=== PATIENT | male | born 1980 | race Hispanic/Latino ===

== ENCOUNTER → 2018-03-20 07:46 | Outpatient (CLI) | payer OTHER, SELFPAY ==
--- NOTE | 2018-03-20 | DI.RAD.S_ITS ---
PROCEDURE: XR CERVICAL SPINE 2V OR 3V INDICATIONS: SHOULDER STRAIN/RIGHT KNEE PAIN/NECK PAIN TECHNIQUE: 4 view(s) of the cervical spine were acquired. COMPARISON: None. FINDINGS: Bones: No fractures or dislocations to the T1 level. The lateral masses of C1 appear intact on the odontoid view. No suspicious bony lesions. Soft tissues: No prevertebral soft tissue swelling. IMPRESSION: No trauma found, source of current symptoms is not seen. Dictated by: Paul Rico M.D. on 03/20/2018 at 10:27 Approved by: Paul Rico M.D. on 03/20/2018 at 10:28
--- NOTE | 2018-03-20 | DI.RAD.S_ITS ---
PROCEDURE: XR KNEE RT 3V INDICATIONS: SHOULDER STRAIN/RIGHT KNEE PAIN/NECK PAIN TECHNIQUE: 3 views of the knee were acquired. COMPARISON: None. FINDINGS: Bones: No fractures or dislocations. No suspicious bony lesions. Soft tissues: No joint effusion. No suspicious soft tissue calcifications. IMPRESSION: Left knee without acute radiographic abnormalities. Dictated by: Mikey Orozco M.D. on 03/20/2018 at 9:01 Approved by: Mikey Orozco M.D. on 03/20/2018 at 9:11
--- NOTE | 2018-03-20 | DI.MRI.S_ITS ---
PROCEDURE: MR SHOULDER RT WO CON INDICATIONS: SHOULDER STRAIN TECHNIQUE: Noncontrast oblique coronal T2 fast spin echo with fat saturation, oblique sagittal T1 spin echo and T2 fast spin echo with fat saturation, axial T1 spin echo and T2 fast spin echo with fat saturation through the shoulder. COMPARISON: None. FINDINGS: Image quality: Excellent. Rotator cuff: There is tendinosis and low-grade articular surface partial-thickness tear involving distal supraspinatus at its insertion on humeral head. Distal infraspinatus tendinosis is also seen. There is distal subscapularis tendinosis. No full-thickness rotator cuff tendon rupture. Sagittal images demonstrate no significant rotator cuff muscle atrophy. Bones and bursae: No bone marrow contusions or fractures. [id number] acromioclavicular joint osteoarthritic changes are seen No pathologic subacromial-subdeltoid or subcoracoid bursal fluid is present. Capsule and soft tissues: In the absence of intra-articular contrast, there is suggestion of superior anterior labral tear at 12 to 1:00 position. The glenohumeral ligaments appear intact. The long head of the biceps tendon demonstrates normal location and morphology. The rotator interval appears normal, without fibrosis. The coracohumeral ligament is normal in thickness. IMPRESSION: 1. Tendinosis and low-grade articular surface partial-thickness tear involving distal supraspinatus at its insertion on humeral head. Distal infraspinatus and subscapularis tendinosis. 2. Mild to moderate acromioclavicular joint osteoarthritis. 3. Suggestion of focal superior anterior labral tear at 12 to 1:00 position. Dictated by: Kirk Platt M.D. on 03/20/2018 at 8:59 Approved by: Kirk Platt M.D. on 03/20/2018 at 9:01
== END ==
PROVIDERS: PCP Family Medicine; Visit Provider Family Medicine
DX: S46.911A Strain of unspecified muscle, fascia and tendon at shoulder and upper arm level, right arm, initial encounter (principal); M75.111 Incomplete rotator cuff tear or rupture of right shoulder, not specified as traumatic; M19.011 Primary osteoarthritis, right shoulder; M54.2 Cervicalgia; M25.561 Pain in right knee
CPT/HCPCS: 72040; 73221; 73562

== ENCOUNTER → 2020-03-01 14:36 | Outpatient (ROUT) | payer OTHER, SELFPAY ==
[2020-03-01 14:55] LABS: COVID19 -Nasal RAPID Negative (Negative)
== END ==
PROVIDERS: PCP Family Medicine; Visit Provider Family Medicine
DX: Z20.822 Contact with and (suspected) exposure to COVID-19 (principal)
CPT/HCPCS: 87635

== ENCOUNTER → 2020-09-21 13:45 | Outpatient (ROUT) | payer OTHER, SELFPAY ==
[2020-09-21 14:04] LABS: COVID19 -Nasal RAPID Negative (Negative)
== END ==
PROVIDERS: PCP Family Medicine; Visit Provider Family Medicine
DX: Z20.822 Contact with and (suspected) exposure to COVID-19 (principal)
CPT/HCPCS: 87635

== ENCOUNTER → 2021-01-27 14:53 | Outpatient (CLI) | payer OTHER, SELFPAY ==
[2021-01-27 16:03] LABS: Add Manual Diff / Slide Review NO; Basophils Absolute Auto 0 /uL (0-100); Basophils Percent Auto 0.3 % (0-2); Eosinophils Absolute Auto 200 /uL (0-450); Eosinophils Percent Auto 2.7 % (2-4); Hematocrit 43.9 % (41-53); Hemoglobin 15.3 g/dL (13.5-17.5); Lymphocytes Absolute Auto 3000 /uL (1100-4500); Mean Corpuscular HGB Conc 34.8 % (30-36); Mean Corpuscular Hemoglobin 31.1 PG (26-34); Mean Corpuscular Volume 89.3 fL (80-100); Monocytes Absolute Auto 500 /uL (0-900); Monocytes Percent Auto 7.5 % (3-14); Neutrophils Absolute Auto 3600 /uL (1500-7000); Neutrophils Percent Auto 48.5 % (50-75); Platelet Count 277 X10^3/uL (150-400); Red Blood Cell Count 4.91 X10^6/uL (4.5-5.9); Red Cell Distribution Width 13.1 % (11.6-14.8); White Blood Cell Count 7.3 X10^3/uL (4.5-11.0)
[2021-01-27 17:40] LABS: Alanine Aminotransferase 58 IU/L (<50); Albumin 4.4 g/dL (3.5-5.0); Albumin Globulin Ratio 1.4 (1.0-2.8); Alkaline Phosphatase 51 U/L (38-126); Aspartate Aminotransferase 49 IU/L (17-59); BUN Creatinine Ratio 24.3 (6-22); Bilirubin Total 0.8 mg/dL (0.2-1.3); Blood Urea Nitrogen 18 mg/dL (9-20); Calcium 9.6 mg/dL (8.4-10.2); Carbon Dioxide 32 mmol/L (22-32); Chloride 101 mmol/L (98-107); Cholesterol 173 mg/dL (140-199); Estimated Glomerular Filt Rate > 60.0 mL/min (>60); Globulin 3.1 g/dL (1.7-4.1); Glucose 214 mg/dL (70-100); HDL Cholesterol 47 mg/dL (40-60); HEMOLYSIS < 15 (0-50); LDL Cholesterol Calculated 89 mg/dL (<100); Sodium 138 mmol/L (137-145); Total Protein 7.5 g/dL (6.3-8.2); Triglycerides 183 mg/dL (35-150)
[2021-01-27 18:06] LABS: TSH w/ Reflex to FT4 2.14 uIU/mL (0.47-4.68)
== END ==
PROVIDERS: PCP Family Medicine; Referring Provider Family Medicine; Visit Provider Family Medicine
DX: E11.9 Type 2 diabetes mellitus without complications (principal); Z79.899 Other long term (current) drug therapy
CPT/HCPCS: 36415; 80053; 80061; 83036; 84443; 85025

== ENCOUNTER 2022-01-17 21:27 | Emergency (ER) | payer OTHER, SELFPAY ==
[2022-01-17 21:32] VITALS: BP 123/69; PULSE 85; RESP 15; TEMP 36.6; O2SAT 98; BMI 30.3
--- NOTE | 2022-01-18 00:37 | ED_ITS ---
HPI - Extremity Problem General Chief complaint: Extremity Problem,Nontraumatic Stated complaint: left ankle , something going on Time Seen by Provider: 01/18/22 00:37 Source: patient Mode of arrival: Wheelchair History of Present Illness HPI Narrative: 41-year-old gentleman type 2 diabetic for the last 10 years not on insulin no difficulties with peripheral neuropathy presents with left foot and ankle pain with drainage from a wound over the Achilles tendon. Notice slight increase in pain over the last 2-3 days today it became increasingly swollen to the point he is unable to walk on and when he took his sock off notice there was quite a bit of drainage that was now coming out of a wound over his Achilles tendon. He complains of nausea has vomited once, does denies fevers. He describes a ?brain fog?. He is having no cough, chest pain, palpitations, abdominal pain or diarrhea Related Data Home Medications Medication Instructions Recorded Confirmed aspirin 81 mg tablet,delayed 81 mg PO QDAY ##0 11/27/16 release glimepiride 4 mg tablet (Amaryl) 4 - 8 mg PO QPM ##0 11/27/16 sitagliptin phosphate 50 1 tab PO BID ##0 11/27/16 mg-metformin 1,000 mg tablet (Janumet) hyoscyamine sulfate 0.125 mg 0.125 mg PO Q4HP ##0 12/06/16 tablet (Levsin) Previous Rx's Medication Instructions Recorded ondansetron 4 mg disintegrating 4 mg sublingual Q4HP PRN ##10 11/27/16 tablet (Zofran ODT) docusate sodium 100 mg capsule 200 mg PO BIDP PRN #60 caps 12/09/16 ibuprofen 600 mg tablet 600 mg PO TIDP PRN #20 tabs 12/09/16 metoclopramide HCl 10 mg tablet 10 mg PO TIDAC #30 tabs 12/09/16 tramadol 50 mg tablet 50 mg PO Q4HP PRN #10 tabs 12/09/16 doxycycline hyclate 100 mg capsule 100 mg PO BID #14 caps 01/18/22 oxycodone-acetaminophen 5 mg-325 1 tab PO Q6H PRN pain #14 tabs 01/18/22 mg tablet Allergies Allergy/AdvReac Type Severity Reaction Status Date / Time No Known Drug Allergies Allergy Verified 12/07/22 21:32 Review of Systems Review of Systems Narrative: Remainder of complete review of systems is otherwise unremarkable except for that included in the HPI. Patient History Medical History (Updated 01/18/22 @ 03:08 by Maryana Powell MD) Diabetes Social History Smoking Status: Unknown if ever smoked Smoking Status: Unknown if ever smoked alcohol intake frequency: holidays/special occasions only Substance Use Type: does not use Exam Initial Vital Signs Initial Vital Signs: Vital Signs Temperature 97.9 F 01/17/22 21:32 Pulse Rate 85 01/17/22 21:32 Respiratory Rate 15 01/17/22 21:32 Blood Pressure 123/69 01/17/22 21:32 Pulse Oximetry 98 01/17/22 21:32 Oxygen Delivery Method 01/17/22 21:32 General: Healthy appearing, in moderate distress. Able to give a complete and coherent history. Well-nourished well-developed HEENT: Moist mucous membranes, normal sclera with reactive pupils, Neck: supple Respiratory: Lungs are clear to auscultation, no wheezing no rales no rhonchi. Full and symmetrical air movement Cardiac: Regular rate and rhythm no murmurs no bruits Abdomen: Soft, nontender, good bowel tones, no flank pain Skin: Warm and dry, no rashes Neurologic: Grossly neurologically intact with no obvious asymmetries or abnormalities Extremities: Left foot is swollen with erythema extending over the entire foot, ankle is tender with any type of motion, he has a draining wound with surrounding erythema over the Achilles tendon and left calf is swollen without erythema extending up the calf. He has minor left inguinal adenopathy. Psych: Cooperative, appropriate insight and affect Course Orders Ordered: ED Orders 01/18/22 00:58 CT LE LT w con Stat 01/18/22 01:21 CRP [C-Reactive Protein Quant] Stat Complete Blood Count AUTO DIFF Stat Comprehensive Metabolic Panel Stat Erythrocyte Sedimentation Rate Stat 01/18/22 02:25 Blood Culture Stat 01/18/22 03:07 Wound Culture and Gram Stain Stat Discontinued Medications Bacitracin (Bacitracin Oint 0.9 Gm Pckt) 1 applic TOP NOW ONE Stop: 01/18/22 03:06 Sodium Chloride (Normal Saline 0.9%) 1,000 mls @ 1,000 mls/hr IV BOLUS ONE Stop: 01/18/22 01:57 Last Infusion: 01/18/22 02:31 Dose: 0 mls/hr Documented By: Admin: 01/18/22 01:28 Dose: 1,000 mls/hr Documented By: EVON Ceftriaxone Sodium 2,000 mg/ (Sodium Chloride) 100 mls @ 200 mls/hr IV NOW ONE Stop: 01/18/22 01:48 Last Admin: 01/18/22 02:33 Dose: 200 mls/hr Documented By: EVON Ondansetron HCl (Ondansetron 4 Mg/2 Ml Inj) 4 mg IV NOW ONE Stop: 01/18/22 00:59 Last Admin: 01/18/22 01:28 Dose: 4 mg Documented By: EVON Oxycodone/Acetaminophen (Oxycodone/Acetaminophen 5/325 Tablet) 1 tab PO NOW ONE Stop: 01/18/22 00:59 Last Admin: 01/18/22 01:28 Dose: 1 tab Documented By: EVON Oxycodone/Acetaminophen (Oxycodone/Apap 5/325 Prepack) 1 bottle MISC SEEINSTR ONE Stop: 01/18/22 03:06 Vital Signs Vital signs: Vital Signs - 8 hr 01/17/22 21:32 Temperature 97.9 F Pulse Rate 85 Respiratory Rate 15 Blood Pressure 123/69 Pulse Oximetry 98 Oxygen Delivery Method Room Air MDM - Extremity (Nontraumatic) Lab Data Result diagrams: 01/18/22 01:21 01/18/22 01:21 Labs: Lab Results 01/18/22 01/18/22 01/18/22 Range/Units 01:21 01:21 01:21 WBC 9.7 (4.5-11.0) X10^3/uL RBC 4.64 (4.5-5.9) X10^6/uL Hgb 14.5 (13.5-17.5) g/dL Hct 41.7 (41-53) % MCV 89.9 (80-100) fL MCH 31.2 (26-34) PG MCHC 34.7 (30-36) % RDW 13.1 (11.6-14.8) % Plt Count 250 (150-400) X10^3/uL Neut % (Auto) 59.3 (50-75) % Lymph % (Auto) 29.4 (25-40) % [place] % (Auto) 8.3 (3-14) % Eos % (Auto) 2.5 (2-4) % Baso % (Auto) 0.5 (0-2) % Neut # (Auto) 5700 (9705-8948) /uL Lymph # (Auto) 2800 (0593-7258) /uL [place] # (Auto) 800 (0-900) /uL Eos # (Auto) 200 (0-450) /uL Baso # (Auto) 100 (0-100) /uL ESR 12 (0-15) MM/HR Sodium (137-145) mmol/L Potassium (3.4-5.1) mmol/L Chloride (98-107) mmol/L Carbon Dioxide (22-32) mmol/L BUN (9-20) mg/dL Creatinine (0.66-1.25) mg/dL Estimated GFR (>60) mL/min BUN/Creatinine Ratio (6-22) Glucose (70-100) mg/dL Calcium (8.4-10.2) mg/dL Total Bilirubin (0.2-1.3) mg/dL AST (17-59) IU/L ALT (<50) IU/L Alkaline Phosphatase (38-126) U/L C-Reactive Protein 1.6 H (<1.0) mg/dL Total Protein (6.3-8.2) g/dL Albumin (3.5-5.0) g/dL Globulin (1.7-4.1) g/dL Albumin/Globulin Ratio (1.0-2.8) 01/18/22 Range/Units 01:21 WBC (4.5-11.0) X10^3/uL RBC (4.5-5.9) X10^6/uL Hgb (13.5-17.5) g/dL Hct (41-53) % MCV (80-100) fL MCH (26-34) PG MCHC (30-36) % RDW (11.6-14.8) % Plt Count (150-400) X10^3/uL Neut % (Auto) (50-75) % Lymph % (Auto) (25-40) % [place] % (Auto) (3-14) % Eos % (Auto) (2-4) % Baso % (Auto) (0-2) % Neut # (Auto) (5676-5073) /uL Lymph # (Auto) (1028-8162) /uL [place] # (Auto) (0-900) /uL Eos # (Auto) (0-450) /uL Baso # (Auto) (0-100) /uL ESR (0-15) MM/HR Sodium 132 L (137-145) mmol/L Potassium 4.0 (3.4-5.1) mmol/L Chloride 98 (98-107) mmol/L Carbon Dioxide 29 (22-32) mmol/L BUN 15 (9-20) mg/dL Creatinine 0.74 (0.66-1.25) mg/dL Estimated GFR > 60 (>60) mL/min BUN/Creatinine Ratio 20.3 (6-22) Glucose 356 H (70-100) mg/dL Calcium 9.0 (8.4-10.2) mg/dL Total Bilirubin 0.7 (0.2-1.3) mg/dL AST 31 (17-59) IU/L ALT 60 H (<50) IU/L Alkaline Phosphatase 73 (38-126) U/L C-Reactive Protein (<1.0) mg/dL Total Protein 6.8 (6.3-8.2) g/dL Albumin 4.0 (3.5-5.0) g/dL Globulin 2.8 (1.7-4.1) g/dL Albumin/Globulin Ratio 1.4 (1.0-2.8) Imaging Data CT left foot and ankle: Radiologist's Impression: Soft tissue swelling at the medial aspect of the lower leg. No loculated fluid collections. No acute osseous findings. No subcutaneous gas or radiodense foreign bodies. Joint spaces appear adequate. Harsha Vines MD MDM Narrative Medical decision making narrative: 41-year-old type 2 diabetic presents with dramatic pain with draining abscess over the Achilles tendon on the left side. There is erythema and induration spreading along the foot and the calf is swollen without erythema. Having significant pain with any type of superficial touch or movement. Labs do not suggest sepsis. CRP is elevated but sed rate is not. CT scan does not suggest deeper infection or tracking and at this time I am less concerned with septic ankle joint. The skin over the wound was gently debrided. A culture was obtained. There was no additional purulence noted. Pain is better controlled. Recommended keeping the foot elevated, soaking the foot and wound as tolerated keeping the wound dressed with bacitracin and a dressing and returning should symptoms worsen at all. 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 He is safe for discharge home Discharge Plan Departure Patient Disposition: Home Clinical Impression: Abscess or cellulitis of foot Instructions: DI for Wound Infection Activity Restrictions/Additional Instructions: Thank you for coming in today The wound over your Achilles tendon is draining appropriately. There does not appear to be a dramatically deeper pocket of pus or infection and it does not appear to be communicating with the ankle joint or spreading up the Achilles tendon. You do need antibiotics, you were given a dose of IV ceftriaxone in the emergency department and I am giving you a prescription for doxycycline 100 mg twice a day for 7 days. Keeping the foot elevated and not standing on it is going to help it heal faster as well as help keep the pain better controlled. Using 400 mg of ibuprofen (2 [id number] pills) and 1 Tylenol every 6 hours can be very helpful in controlling pain. For severe pain using 400 mg of ibuprofen and 1 Percocet can be helpful. If you feel that you are getting worse you do need to return to the emergency department immediately. Prescriptions: New doxycycline hyclate 100 mg capsule 100 mg PO BID Qty: 14 0RF oxycodone-acetaminophen 5-325 mg tablet 1 tab PO Q6H PRN (Reason: pain) Qty: 14 0RF No Action aspirin 81 MG tablet,delayed release (DR/EC) 81 mg PO QDAY Qty: 0 sitagliptin phos-metformin [Janumet] 50 MG/1,000 MG tablet 1 tab PO BID Qty: 0 glimepiride [Amaryl] 4 MG tablet 4 - 8 mg PO QPM Qty: 0 ondansetron [Zofran ODT] 4 MG tablet,disintegrating 4 mg Sublingual Q4HP PRNQty: 10 0RF hyoscyamine sulfate [Levsin] 0.125 MG tablet 0.125 mg PO Q4HP Qty: 0 docusate sodium 100 MG capsule 200 mg PO BIDP PRNQty: 60 0RF ibuprofen 600 MG tablet 600 mg PO TIDP PRNQty: 20 0RF metoclopramide HCl 10 MG tablet 10 mg PO TIDAC Qty: 30 0RF tramadol 50 MG tablet 50 mg PO Q4HP PRNQty: 10 0RF Referrals: Mike Del Angel MD [Primary Care Provider] - Stand Alone Forms: Work Release Note
--- NOTE | 2022-01-18 00:58 | DI.CT.S_ITS ---
PROCEDURE: CT LE LT W CON INDICATIONS: draining abscess over achilles, ? septic joint, deeper infec TECHNIQUE: After the administration of intravenous contrast, 3 mm axial sections acquired of the left lower extremity, with coronal and sagittal reformats. COMPARISON: None. FINDINGS: Image quality: Excellent. Bones: Normal alignment. No fracture or aggressive osseous lesions. The joint spaces appear intact. Soft tissues: There is subcutaneous edema along the medial aspect of the lower leg/medial malleolus. No loculated fluid collection. No subcutaneous gas or radiodense foreign bodies. IMPRESSION: Soft tissue swelling of the medial aspect of the lower leg. No abscess or evidence of acute osteomyelitis. Comment: Final report is concordant with preliminary interpretation by [facility] Dictated by: Viet Croft M.D. on 01/18/2022 at 9:26 Approved by: Viet Croft M.D. on 01/18/2022 at 9:28
[2022-01-18] MEDS: SODIUM CHLORIDE 0.9% 1,000 ML 1000 ML IV (01:28)
[2022-01-18] MEDS: ONDANSETRON 4 MG/2 ML INJ IV (01:28)
[2022-01-18] MEDS: OXYCODONE/ACETAMINOPHEN 5/325 TABLET 1 TAB PO (01:28)
[2022-01-18 01:38] LABS: Add Manual Diff / Slide Review NO; Basophils Absolute Auto 100 /uL (0-100); Basophils Percent Auto 0.5 % (0-2); Eosinophils Absolute Auto 200 /uL (0-450); Eosinophils Percent Auto 2.5 % (2-4); Hematocrit 41.7 % (41-53); Hemoglobin 14.5 g/dL (13.5-17.5); Lymphocytes Absolute Auto 2800 /uL (1100-4500); Lymphocytes Percent Auto 29.4 % (25-40); Mean Corpuscular HGB Conc 34.7 % (30-36); Mean Corpuscular Hemoglobin 31.2 PG (26-34); Mean Corpuscular Volume 89.9 fL (80-100); Monocytes Absolute Auto 800 /uL (0-900); Monocytes Percent Auto 8.3 % (3-14); Neutrophils Absolute Auto 5700 /uL (1500-7000); Neutrophils Percent Auto 59.3 % (50-75); Platelet Count 250 X10^3/uL (150-400); Red Blood Cell Count 4.64 X10^6/uL (4.5-5.9); Red Cell Distribution Width 13.1 % (11.6-14.8); White Blood Cell Count 9.7 X10^3/uL (4.5-11.0)
[2022-01-18 01:46] LABS: Alanine Aminotransferase 60 IU/L (<50); Albumin Globulin Ratio 1.4 (1.0-2.8); Alkaline Phosphatase 73 U/L (38-126); Aspartate Aminotransferase 31 IU/L (17-59); BUN Creatinine Ratio 20.3 (6-22); Bilirubin Total 0.7 mg/dL (0.2-1.3); Blood Urea Nitrogen 15 mg/dL (9-20); Carbon Dioxide 29 mmol/L (22-32); Chloride 98 mmol/L (98-107); Estimated Glomerular Filt Rate > 60 mL/min (>60); Globulin 2.8 g/dL (1.7-4.1); Glucose 356 mg/dL (70-100); HEMOLYSIS 20 (0-50); Sodium 132 mmol/L (137-145); Total Protein 6.8 g/dL (6.3-8.2)
[2022-01-18 01:47] LABS: C-Reactive Protein Quant 1.6 mg/dL (<1.0)
[2022-01-18 02:11] LABS: Erythrocyte Sedimentation Rate 12 MM/HR (0-15)
[2022-01-18] MEDS: cefTRIAXone 2,000 MG in SODIUM CHLORIDE 0.9% 100 ML 200 MG IV (02:33)
[2022-01-18] MEDS: OXYCODONE/APAP 5/325 PREPACK 1 BOTTLE MISC (03:19)
[2022-01-18] MEDS: BACITRACIN OINT 0.9 GM PCKT 1 APPLIC TOP (03:19)
[2022-01-18 03:31] VITALS: BP 139/89; PULSE 80; RESP 16; O2SAT 100
== END 2022-01-18 03:32 | disposition home or self-care (01) ==
PROVIDERS: Emergency Provider Emergency Medicine; PCP Family Medicine
DX: L03.116 Cellulitis of left lower limb (principal)
CPT/HCPCS: 36415; 73701; 80053; 85025; 85651; 86140; 87040; 87070; 87075; 87077; 87147; 87205; 96365; 96375; 99284; J0696; J2405; Q9967

== ENCOUNTER → 2022-06-04 16:21 | Outpatient (CLI) | payer OTHER, SELFPAY ==
[2022-06-06 03:21] LABS: Labcorp Hemoglobin (Hb) A1c 7.6 % (4.8-5.6)
== END ==
PROVIDERS: PCP Family Medicine; Referring Provider Family Medicine; Visit Provider Family Medicine
DX: E11.65 Type 2 diabetes mellitus with hyperglycemia (principal)
CPT/HCPCS: 36415; 83036

== ENCOUNTER → 2022-10-10 17:09 | Outpatient (CLI) | payer OTHER, SELFPAY ==
[2022-10-10 17:46] LABS: Hemoglobin A1C% w Est Avg Glu 10.7 % (4.0-6.0)
[2022-10-10 17:57] LABS: Cholesterol 170 mg/dL (140-199); HDL Cholesterol 31 mg/dL (40-60)
[2022-10-10 18:05] LABS: Triglycerides 614 mg/dL (35-150)
[2022-10-10 20:24] LABS: Creatinine Urine Random 68.9 mg/dL
[2022-10-10 20:32] LABS: Microalbumin Urine Random < 0.6 mg/dL (0-1.6)
== END ==
PROVIDERS: PCP Family Medicine; Referring Provider Family Medicine; Visit Provider Family Medicine
DX: E11.65 Type 2 diabetes mellitus with hyperglycemia (principal)
CPT/HCPCS: 36415; 80061; 82043; 82570; 83036

== ENCOUNTER 2022-10-23 17:59 | Observation (INO) | payer OTHER, SELFPAY ==
[2022-10-23 18:38] VITALS: BP 114/73; PULSE 93; RESP 20; TEMP 37.2; O2SAT 98; BMI 30.3
--- NOTE | 2022-10-23 18:43 | DI.RAD.S_ITS ---
PROCEDURE: XR CHEST 1V INDICATIONS: suspected sepsis TECHNIQUE: One view of the chest was acquired. COMPARISON: None. FINDINGS: Surgical changes and devices: None. Lungs and pleura: Lungs are clear. No pleural effusions or pneumothorax. Mediastinum: Mediastinal contours appear normal. Heart size is normal. Bones and chest wall: No suspicious bony lesions. Overlying soft tissues appear unremarkable. IMPRESSION: No acute cardiopulmonary abnormality. Dictated by: Jose Francisco Dominguez M.D. on 10/23/2022 at 19:59 Approved by: Jose Francisco Dominguez M.D. on 10/23/2022 at 20:01
[2022-10-23 19:03] LABS: INR 1.1 (0.9-1.3); Prothrombin Time 12.3 SECONDS (10.1-12.7)
[2022-10-23 19:06] LABS: PTT Partial Thromboplastin Tim 28 SECONDS (26-36)
[2022-10-23 19:08] LABS: Lactate (Lactic Acid) 2.3 mmol/L (0.7-2.1)
[2022-10-23 19:10] LABS: Alanine Aminotransferase 37 IU/L (<50); Albumin 4.6 g/dL (3.5-5.0); Albumin Globulin Ratio 1.2 (1.0-2.8); Alkaline Phosphatase 81 U/L (38-126); Aspartate Aminotransferase 31 IU/L (17-59); BUN Creatinine Ratio 18.6 (6-22); Bilirubin Total 1.1 mg/dL (0.2-1.3); Blood Urea Nitrogen 18 mg/dL (9-20); Calcium 8.9 mg/dL (8.4-10.2); Carbon Dioxide 24 mmol/L (22-32); Chloride 93 mmol/L (98-107); Estimated Glomerular Filt Rate > 60 mL/min (>60); Globulin 3.9 g/dL (1.7-4.1); Glucose 445 mg/dL (70-100); HEMOLYSIS 24 (0-50); Lipase 123 U/L (23-300); Potassium 4.6 mmol/L (3.4-5.1); Sodium 129 mmol/L (137-145); Total Protein 8.5 g/dL (6.3-8.2)
[2022-10-23 19:16] LABS: Add Manual Diff / Slide Review NO; Basophils Absolute Auto 100 /uL (0-100); Basophils Percent Auto 0.6 % (0-2); Eosinophils Absolute Auto 100 /uL (0-450); Eosinophils Percent Auto 1.1 % (2-4); Hemoglobin 15.3 g/dL (13.5-17.5); Lymphocytes Absolute Auto 2400 /uL (1100-4500); Lymphocytes Percent Auto 20.8 % (25-40); Mean Corpuscular HGB Conc 34.8 % (30-36); Mean Corpuscular Hemoglobin 30.9 PG (26-34); Mean Corpuscular Volume 88.7 fL (80-100); Monocytes Absolute Auto 900 /uL (0-900); Monocytes Percent Auto 8.3 % (3-14); Neutrophils Absolute Auto 8000 /uL (1500-7000); Neutrophils Percent Auto 69.2 % (50-75); Platelet Count 301 X10^3/uL (150-400); Red Blood Cell Count 4.95 X10^6/uL (4.5-5.9); Red Cell Distribution Width 12.8 % (11.6-14.8); White Blood Cell Count 11.5 X10^3/uL (4.5-11.0)
[2022-10-23 19:26] LABS: Procalcitonin 0.12 ng/mL (<0.5)
[2022-10-23] MEDS: SODIUM CHLORIDE 0.9% 1,000 ML 1000 ML IV (19:35)
--- NOTE | 2022-10-23 19:49 | ED_ITS ---
HPI - Wound/Laceration General Chief Complaint: Wound/Laceration Stated Complaint: infection L Leg T-3 Time Seen by Provider: 10/23/22 19:47 Source: patient Mode of arrival: Wheelchair History of Present Illness HPI narrative: 42-year-old male nonsmoker with history of diabetes presents with a chief complaint of pain and swelling to his left anterior stovall after he injured it on a scaffolding at work a few days ago. He is had subjective fever and some chills and feels generally unwell. He denies dizziness or lightheadedness. Denies any chest pain or shortness of breath. He has had prior infections. He states he largely has been taking his medications but admittedly did not take his Ozempic yesterday. Related Data Home Medications Medication Instructions Recorded Confirmed aspirin 81 mg tablet,delayed 81 mg PO QDAY ##0 11/27/16 10/23/22 release glimepiride 4 mg tablet (Amaryl) 4 - 8 mg PO QPM ##0 11/27/16 10/23/22 hyoscyamine sulfate 0.125 mg 0.125 mg PO Q4HP ##0 12/06/16 10/23/22 tablet (Levsin) glimepiride 2 mg tablet mg PO 10/23/22 10/23/22 metformin 1,000 mg tablet 1,000 mg PO DAILY 10/23/22 10/23/22 semaglutide 0.25 mg or 0.5 mg (2 mg SUBCUT 10/23/22 10/23/22 mg/3 mL) subcutaneous pen injector (Ozempic) Previous Rx's Medication Instructions Recorded docusate sodium 100 mg capsule 200 mg PO BIDP PRN #60 caps 12/09/16 ibuprofen 600 mg tablet 600 mg PO TIDP PRN #20 tabs 12/09/16 metoclopramide HCl 10 mg tablet 10 mg PO TIDAC #30 tabs 12/09/16 Allergies Allergy/AdvReac Type Severity Reaction Status Date / Time morphine Allergy Mild Nausea Verified 10/23/22 18:42 Review of Systems Review of Systems Narrative: GENERAL: See HPI HEENT: Denies sinus pain, ear pain, sore throat, difficulty swallowing, dizziness. RESPIRATORY: Denies dyspnea, cough, wheezing, hemoptysis, sputum. CARDIOVASCULAR: Denies chest pain, palpitations, orthopnea, edema, GASTROINTESTINAL: Denies nausea, vomiting, abdominal pain, diarrhea, constipation, melena. : Denies dysuria, frequency, incontinence, hematuria, urinary retention. MUSCULOSKELETAL: See HPI SKIN: See HPI NEUROLOGIC: Denies weakness, headache, numbness, change in speech, confusion, seizures, incoordination. PSYCHIATRIC: No concerning psychosocial issues. 12 point review of systems is negative except for those stated above Patient History Medical History Diabetes Social History household members: spouse and children Smoking Status: Never smoker Smoking Status: Never smoker alcohol intake frequency: holidays/special occasions only Substance Use Type: does not use Exam Narrative Exam Narrative: GENERAL: [42] year old patient appears stated age. Well-developed patient, in mild distress. HEAD: Atraumatic. Normocephalic. EYES: Pupils equal round and reactive. Extraocular motions intact. No scleral icterus. No injection or drainage. ENT: Nose without bleeding, purulent drainage. Throat without erythema, tonsillar hypertrophy or exudate. Airway patent. NECK: Trachea midline. Non tender CARDIOVASCULAR: Regular rate and rhythm without murmurs, gallops, or rubs. RESPIRATORY: Clear to auscultation. Breath sounds equal bilaterally. No wheezes, rales, or rhonchi. GASTROINTESTINAL: Abdomen soft, non-tender, nondistended. EXTREMITIES: Left anterior stovall with a quarter-sized lesion and surrounding erythema and edema is quite tender to palpation, no obvious drainage, nothing to culture or draining, no lymphangitis BACK: Nontender without deformity or crepitance. No flank tenderness. NEURO: AOx3. SKIN: No rash or erythema of visible areas Initial Vital Signs Initial Vital Signs: Vital Signs Temperature 99.0 F 10/23/22 18:38 Pulse Rate 93 H 10/23/22 18:38 Respiratory Rate 20 10/23/22 18:38 Blood Pressure 114/73 10/23/22 18:38 Pulse Oximetry 98 10/23/22 18:38 Oxygen Delivery Method Room Air 10/23/22 18:38 Course Orders Ordered: ED Orders 10/23/22 19:53 XR tibia fibula LT 2V Stat Acetaminophen (Acetaminophen 325 Mg Tablet) 650 mg PO Q6H PRN PRN Reason: Fever/Mild Pain (1-3) Hydrocodone Bitart/Acetaminophen (Hydrocodone/Acet 5/325 Tablet) 1 tab PO Q4HR PRN PRN Reason: Pain, Moderate (4-6) Last Admin: 10/23/22 22:57 Dose: 1 tab Documented By: RUPA Aspirin (Aspirin Ec 81 Mg Tablet) 81 mg PO DAILY [facility] Glimepiride (Glimepiride 2 Mg Tablet) 2 mg PO DAILY@0800 [facility] Hydromorphone HCl (Hydromorphone 0.5 Mg Inj) 0.5 mg IV Q3H PRN PRN Reason: Pain, Moderate (4-6) Vancomycin HCl/Dextrose (Vancomycin) 1,500 mg in 300 mls @ 150 mls/hr IV Q12H [facility] Insulin Human Regular (Insulin Regular 100 Unit/Ml 3 Ml Vial) 0 unit SUBCUT [facility]; Protocol Last Admin: 10/23/22 22:49 Dose: 5 unit Documented By: RUPA Co-signed By: BRE Metformin HCl (Metformin Hcl 500 Mg Tablet) 1,000 mg PO 0800 [facility] Last Admin: 10/23/22 22:46 Dose: 1,000 mg Documented By: RUPA Ondansetron HCl (Ondansetron 4 Mg/2 Ml Inj) 4 mg IV NOW PRN PRN Reason: Nausea And Vomiting Ondansetron HCl (Ondansetron 4 Mg Odt) 4 mg SL NOW PRN PRN Reason: Nausea And Vomiting Ondansetron HCl (Ondansetron 4 Mg Odt) 4 mg SL Q6HR PRN PRN Reason: Nausea Sodium Chloride (Sodium Chloride 0.9% Flush) 10 ml IV BID [facility] Vancomycin HCl (Vancomycin Per Pharmacy) 1 request MISC NOW PRN PRN Reason: vanco draw Discontinued Medications Sodium Chloride (Normal Saline 0.9%) 1,000 mls @ 1,000 mls/hr IV BOLUS ONE Stop: 10/23/22 19:42 Last Infusion: 10/23/22 20:51 Dose: 0 mls/hr Documented By: Admin: 10/23/22 19:35 Dose: 1,000 mls/hr Documented By: MARY Sodium Chloride (Normal Saline 0.9%) 3,129.78 mls @ 1,043.26 mls/hr 30 ml/kg infuse over 3 hr (3129.78 ml) IV NOW ONE Stop: 10/23/22 22:47 Last Admin: 10/23/22 20:52 Dose: 1,043.26 mls/hr Documented By: IVETT Vancomycin HCl/Dextrose (Vancomycin) 2,000 mg in 400 mls @ 200 mls/hr IV NOW ONE Stop: 10/23/22 21:47 Last Admin: 10/23/22 20:50 Dose: 200 mls/hr Documented By: SB Ceftriaxone Sodium 2,000 mg/ (Sodium Chloride) 100 mls @ 200 mls/hr IV NOW ONE Stop: 10/23/22 19:49 Last Infusion: 10/23/22 20:51 Dose: 0 mls/hr Documented By: Admin: 10/23/22 20:04 Dose: 200 mls/hr Documented By: MARY Sodium Chloride (Normal Saline 0.9%) 1,000 mls @ 150 mls/hr IV CONT DIDIER Stop: 10/24/22 04:54 Insulin Human Regular (Insulin Regular 100 Unit/Ml 3 Ml Vial) 5 unit SUBCUT NOW ONE Stop: 10/23/22 19:49 Last Admin: 10/23/22 20:13 Dose: 5 unit Documented By: MARY Co-signed By: RADHA Ketorolac Tromethamine (Ketorolac 30 Mg/Ml Vial) 15 mg IV NOW ONE Stop: 10/23/22 19:54 Last Admin: 10/23/22 20:00 Dose: 15 mg Documented By: MARY Vital Signs Vital signs: Vital Signs - 8 hr 10/23/22 18:38 Temperature 99.0 F Pulse Rate 93 H Respiratory Rate 20 Blood Pressure 114/73 Pulse Oximetry 98 Oxygen Delivery Method Room Air MDM - Wound/Laceration Lab Data 10/23/22 18:30 10/23/22 18:30 Labs: Lab Results 10/23/22 10/23/22 10/23/22 Range/Units 18:30 18:30 18:30 WBC 11.5 H (4.5-11.0) X10^3/uL RBC 4.95 (4.5-5.9) X10^6/uL Hgb 15.3 (13.5-17.5) g/dL Hct 44.0 (41-53) % MCV 88.7 (80-100) fL MCH 30.9 (26-34) PG MCHC 34.8 (30-36) % RDW 12.8 (11.6-14.8) % Plt Count 301 (150-400) X10^3/uL Neut % (Auto) 69.2 (50-75) % Lymph % (Auto) 20.8 L (25-40) % [place] % (Auto) 8.3 (3-14) % Eos % (Auto) 1.1 L (2-4) % Baso % (Auto) 0.6 (0-2) % Neut # (Auto) 8000 H (7044-7713) /uL Lymph # (Auto) 2400 (5248-8848) /uL Vernon # (Auto) 900 (0-900) /uL Eos # (Auto) 100 (0-450) /uL Baso # (Auto) 100 (0-100) /uL PT 12.3 (10.1-12.7) SECONDS INR 1.1 (0.9-1.3) APTT 28 (26-36) SECONDS Sodium 129 L (137-145) mmol/L Potassium 4.6 (3.4-5.1) mmol/L Chloride 93 L (98-107) mmol/L Carbon Dioxide 24 (22-32) mmol/L BUN 18 (9-20) mg/dL Creatinine 0.97 (0.66-1.25) mg/dL Estimated GFR > 60 (>60) mL/min BUN/Creatinine Ratio 18.6 (6-22) Glucose 445 H (70-100) mg/dL Lactate (0.7-2.1) mmol/L Calcium 8.9 (8.4-10.2) mg/dL Total Bilirubin 1.1 (0.2-1.3) mg/dL AST 31 (17-59) IU/L ALT 37 (<50) IU/L Alkaline Phosphatase 81 (38-126) U/L Total Protein 8.5 H (6.3-8.2) g/dL Albumin 4.6 (3.5-5.0) g/dL Globulin 3.9 (1.7-4.1) g/dL Albumin/Globulin Ratio 1.2 (1.0-2.8) Lipase 123 (23-300) U/L Procalcitonin 0.12 (<0.5) ng/mL 09/12/23 Range/Units 18:30 WBC (4.5-11.0) X10^3/uL RBC (4.5-5.9) X10^6/uL Hgb (13.5-17.5) g/dL Hct (41-53) % MCV (80-100) fL MCH (26-34) PG MCHC (30-36) % RDW (11.6-14.8) % Plt Count (150-400) X10^3/uL Neut % (Auto) (50-75) % Lymph % (Auto) (25-40) % Vernon % (Auto) (3-14) % Eos % (Auto) (2-4) % Baso % (Auto) (0-2) % Neut # (Auto) (2797-4991) /uL Lymph # (Auto) (6772-2913) /uL Vernon # (Auto) (0-900) /uL Eos # (Auto) (0-450) /uL Baso # (Auto) (0-100) /uL PT (10.1-12.7) SECONDS INR (0.9-1.3) APTT (26-36) SECONDS Sodium (137-145) mmol/L Potassium (3.4-5.1) mmol/L Chloride (98-107) mmol/L Carbon Dioxide (22-32) mmol/L BUN (9-20) mg/dL Creatinine (0.66-1.25) mg/dL Estimated GFR (>60) mL/min BUN/Creatinine Ratio (6-22) Glucose (70-100) mg/dL Lactate 2.3 H (0.7-2.1) mmol/L Calcium (8.4-10.2) mg/dL Total Bilirubin (0.2-1.3) mg/dL AST (17-59) IU/L ALT (<50) IU/L Alkaline Phosphatase (38-126) U/L Total Protein (6.3-8.2) g/dL Albumin (3.5-5.0) g/dL Globulin (1.7-4.1) g/dL Albumin/Globulin Ratio (1.0-2.8) Lipase (23-300) U/L Procalcitonin (<0.5) ng/mL MDM Narrative Medical decision making narrative: 42-year-old male diabetic with history of prior skin infections presents with severe left lower extremity pain and meets septic criteria Prior Charts reviewed in our EMR Primary Historian: patient Consultations: Dr. Fagan happy to admit on her service Discharge Plan Departure Patient Disposition: Admitted As Inpatient Clinical Impression: Cellulitis of left anterior lower leg, Sepsis, Acute hyperglycemia Admit Date/Time: 10/23/22 20:48 Admit Provider: Barbi Fagan
--- NOTE | 2022-10-23 19:53 | DI.RAD.S_ITS ---
PROCEDURE: XR TIBIA FIBULA LT 2V INDICATIONS: pain, swelling TECHNIQUE: 2 views of the tibia and fibula were acquired. COMPARISON: None. FINDINGS: Bones: No fractures or dislocations. No discrete bony erosions or periosteal reaction. No suspicious bony lesions. Soft tissues: No suspicious soft tissue calcifications or masses. No definite soft tissue gas. IMPRESSION: 1. No radiographic evidence of osteomyelitis. Further evaluation may be obtained with MRI if clinical concern persists. Dictated by: Morris Holley M.D. on 10/23/2022 at 21:44 Approved by: Morris Holley M.D. on 10/23/2022 at 21:45
[2022-10-23] MEDS: KETOROLAC 30 MG/ML VIAL 15 MG IV (20:00)
[2022-10-23] MEDS: cefTRIAXone 2,000 MG in SODIUM CHLORIDE 0.9% 100 ML 200 MG IV (20:04)
[2022-10-23] MEDS: INSULIN REGULAR 100 UNIT/ML 3 ML VIAL SUBCUT ×2 (20:13→22:49)
[2022-10-23 20:25] VITALS: BP 134/89; PULSE 86; RESP 24; O2SAT 99
[2022-10-23] MEDS: VANCOMYCIN 2,000 MG/400 ML PIGGYBACK 200 MG IV (20:50)
[2022-10-23 20:52] LABS: Reflexed Lactate in 2 Hours Y
[2022-10-23] MEDS: SODIUM CHLORIDE 0.9% 3,129.78 ML 1043.26 ML IV (20:52)
[2022-10-23 20:55] VITALS: BP 127/80; PULSE 70; RESP 17; TEMP 36.9; O2SAT 100
[2022-10-23 21:00] VITALS: BP 125/80; PULSE 62; RESP 16; O2SAT 98
[2022-10-23 21:30] VITALS: BMI 30.3
[2022-10-23 21:31] LABS: Lactate 2HR (Lactic Acid Rflx) 1.5 mmol/L (0.7-2.1)
[2022-10-23 21:35] VITALS: BP 138/83; PULSE 71; RESP 20; TEMP 35.8; O2SAT 100
[2022-10-23] MEDS: METFORMIN HCL 500 MG TABLET 1000 MG PO (22:46)
[2022-10-23] MEDS: HYDROCODONE/ACET 5/325 TABLET 1 TAB PO (22:57)
[2022-10-23 23:43] LABS: Appearance Urine UA CLEAR; Bilirubin Urine UA NEGATIVE (NEGATIVE); Color Urine UA YELLOW; Glucose Urine UA 3+ g/dL (Negative); Ketones Urine UA NEGATIVE (NEGATIVE); Leukocyte Esterase Urine UA NEGATIVE (NEGATIVE); Nitrite Urine UA NEGATIVE (Negative); Occult Blood Urine UA NEGATIVE (Negative); Protein Urine UA NEGATIVE (Negative); Urobilinogen Urine UA 0.2 E.U./dL (0.2); pH Urine UA 5.5 (4.5-8.0)
[2022-10-23 23:55] LABS: Bacteria Urine None Seen; Culture Indicated Urine Cult Not Indicated; RBC Urine None Seen (0-5/HPF); Squamous Epithelial Cell Urine None Seen (0-5/HPF); WBC Urine None Seen (0-5/HPF)
--- NOTE | 2022-10-24 00:09 | PC.ADMIT ---
[address] [place] Admission Note: Patient admitted to AC unit from ED @ 21:30 transported by gurney, ambulated to bed. A/O x 4, able to make needs known. Patient receiving NS bolus 1L, per Dr. Fagan change to 150/hr to complete bag, then discontinue. Patient is SBA due to pain in LLE. Redness to LLE demarcated upon arrival. Patient oriented to room, shown how to use call light. Bed in low/ locked position and call light within reach. The patient,Norman Kelley,42 y/o, was given written information regarding hospital policies, unit procedures and contact persons. Patient's smoking status: Never smoker. Vital Signs - 8 hr 10/23/22 18:38 10/23/22 20:25 10/23/22 20:55 Temperature 99.0 F 98.4 F Pulse Rate 93 H 86 70 Respiratory Rate 20 24 17 Blood Pressure 114/73 134/89 127/80 Pulse Oximetry 98 99 100 Oxygen Delivery Method Room Air Room Air Room Air 10/23/22 21:00 10/23/22 20:54 Temperature Pulse Rate 62 Respiratory Rate 16 Blood Pressure 125/80 Pulse Oximetry 98 Oxygen Delivery Method Room Air Room Air
[2022-10-24 01:00] VITALS: BP 111/61; PULSE 63; TEMP 36.1; O2SAT 97
[2022-10-24 06:00] VITALS: BP 118/66; PULSE 67; RESP 16; TEMP 36.2; O2SAT 97
[2022-10-24] MEDS: HYDROCODONE/ACET 5/325 TABLET 1 TAB PO ×3 (06:06→15:05)
[2022-10-24 06:10] LABS: Add Manual Diff / Slide Review NO; Basophils Absolute Auto 0 /uL (0-100); Basophils Percent Auto 0.3 % (0-2); Eosinophils Absolute Auto 300 /uL (0-450); Eosinophils Percent Auto 3.8 % (2-4); Hemoglobin 13.4 g/dL (13.5-17.5); Lymphocytes Absolute Auto 3300 /uL (1100-4500); Mean Corpuscular HGB Conc 35.3 % (30-36); Mean Corpuscular Hemoglobin 31.3 PG (26-34); Mean Corpuscular Volume 88.8 fL (80-100); Monocytes Absolute Auto 900 /uL (0-900); Monocytes Percent Auto 9.8 % (3-14); Neutrophils Absolute Auto 4200 /uL (1500-7000); Neutrophils Percent Auto 48.1 % (50-75); Platelet Count 240 X10^3/uL (150-400); Red Blood Cell Count 4.28 X10^6/uL (4.5-5.9); Red Cell Distribution Width 12.8 % (11.6-14.8); White Blood Cell Count 8.7 X10^3/uL (4.5-11.0)
[2022-10-24 06:20] LABS: Alanine Aminotransferase 27 IU/L (<50); Albumin 3.2 g/dL (3.5-5.0); Albumin Globulin Ratio 1.1 (1.0-2.8); Alkaline Phosphatase 66 U/L (38-126); Aspartate Aminotransferase 24 IU/L (17-59); BUN Creatinine Ratio 23.6 (6-22); Bilirubin Total 0.6 mg/dL (0.2-1.3); Blood Urea Nitrogen 17 mg/dL (9-20); Calcium 7.7 mg/dL (8.4-10.2); Carbon Dioxide 23 mmol/L (22-32); Chloride 103 mmol/L (98-107); Estimated Glomerular Filt Rate > 60 mL/min (>60); Globulin 2.9 g/dL (1.7-4.1); Glucose 243 mg/dL (70-100); HEMOLYSIS < 15 (0-50); Potassium 3.5 mmol/L (3.4-5.1); Sodium 134 mmol/L (137-145); Total Protein 6.1 g/dL (6.3-8.2)
[2022-10-24] MEDS: METFORMIN HCL 500 MG TABLET 1000 MG PO (08:10)
[2022-10-24] MEDS: GLIMEPIRIDE 2 MG TABLET PO (08:10)
[2022-10-24] MEDS: ASPIRIN EC 81 MG TABLET PO (08:10)
[2022-10-24] MEDS: SODIUM CHLORIDE 0.9% FLUSH 10 ML IV (08:10)
[2022-10-24] MEDS: VANCOMYCIN 2,000 MG/400 ML PIGGYBACK 200 MG IV (08:11)
[2022-10-24] MEDS: INSULIN REGULAR 100 UNIT/ML 3 ML VIAL SUBCUT ×2 (08:11→12:23)
[2022-10-24 08:30] VITALS: BP 131/85; PULSE 56; RESP 18; TEMP 35.6; O2SAT 98
[2022-10-24] MEDS: POTASSIUM CHLORIDE 20 MEQ TAB 40 MEQ PO (09:49)
[2022-10-24] MEDS: INSULIN GLARGINE 100 UNIT/ML 3ML PEN 10 UNIT SUBCUT (10:21)
--- NOTE | 2022-10-24 11:03 | P.HP_ITS ---
History of Present Illness History of Present Illness Date Patient Seen: 10/24/22 Time Patient Seen: 09:10 Chief complaint: infection L Leg T-3 Narrative: PT with poorly controlled diabetes presented to ED with malaise and infected L stovall wound from injury at work. Bashed it into a scaffolding creating a laceration which seemed to be healing ok initially however by DoA it was very swollen weeping approximately pal-sized lesion. Also noted small ~3mm carbuncle type lesion on left lower abdomen which sprang up about same time. Found at admission to have sugars in the 400s and started on insulin ssi as well as vanc/rocephin. Feeling better this morning the demarcated area of swelling is already improving and the pain is going down. He is not trying to ambulate much on it but can bear weight he thinks. Swelling in limb is also improving. Appetite is good. Notes this morning he is having some intermittent stabbing pain behind R eye - vision feels ok except for normal hyperglycemic cloudiness. [facility] Medical History Diabetes Social History household members: spouse and children Smoking Status: Never smoker Meds Home Medications and Allergies Home Medications Medication Instructions Recorded Confirmed Type aspirin 81 mg tablet,delayed 81 mg PO QDAY ##0 11/27/16 10/23/22 History release glimepiride 4 mg tablet (Amaryl) 4 - 8 mg PO QPM ##0 11/27/16 10/23/22 History hyoscyamine sulfate 0.125 mg 0.125 mg PO Q4HP ##0 12/06/16 10/23/22 History tablet (Levsin) docusate sodium 100 mg capsule 200 mg PO BIDP PRN #60 caps 12/09/16 10/23/22 Rx ibuprofen 600 mg tablet 600 mg PO TIDP PRN #20 tabs 12/09/16 10/23/22 Rx metoclopramide HCl 10 mg tablet 10 mg PO TIDAC #30 tabs 12/09/16 10/23/22 Rx metformin 1,000 mg tablet 1,000 mg PO DAILY 10/23/22 10/23/22 History semaglutide 0.25 mg or 0.5 mg (2 mg SUBCUT 10/23/22 10/23/22 History mg/3 mL) subcutaneous pen injector (Ozempic) Allergies Allergy/AdvReac Type Severity Reaction Status Date / Time morphine Allergy Mild Nausea Verified 10/23/22 18:42 Review of Systems Review of Systems Narrative: all systems reviewed and negative except as otherwise documented in HPI Exam Vital Signs (past 8 hours): - 10/24/22 06:00 10/24/22 08:30 Temperature 97.2 F L 96.1 F L Pulse Rate 67 56 L Respiratory Rate 16 18 Blood Pressure 118/66 131/85 Pulse Oximetry 97 98 Oxygen Delivery Method Room Air Narrative Exam Narrative: sweaty laying in bed Const Other: looks tired HENMT Other: NC/AT, EOMI, PERRLA Resp Other: clear to auscultation bilaterally Cardio Other: regular rate and rhythm, S1/S2 GI Other: soft nontender active bowel sounds 3mm boil on skin of LLQ no discharge Extrem Other: L leg with stovall laceration approx 5cm with surrounding swelling and erythema, minimal discharge. pedal edema 1+ maybe, good dorsopedal pulse. Objective Labs 10/24/22 05:18 10/24/22 05:18 Labs: Laboratory Results - last 24 hr 10/23/22 10/23/22 10/23/22 18:30 18:30 18:30 WBC 11.5 H RBC 4.95 Hgb 15.3 Hct 44.0 MCV 88.7 MCH 30.9 MCHC 34.8 RDW 12.8 Plt Count 301 Neut % (Auto) 69.2 Lymph % (Auto) 20.8 L Graves % (Auto) 8.3 Eos % (Auto) 1.1 L Baso % (Auto) 0.6 Neut # (Auto) 8000 H Lymph # (Auto) 2400 Graves # (Auto) 900 Eos # (Auto) 100 Baso # (Auto) 100 PT 12.3 INR 1.1 APTT 28 Sodium 129 L Potassium 4.6 Chloride 93 L Carbon Dioxide 24 BUN 18 Creatinine 0.97 Estimated GFR > 60 BUN/Creatinine Ratio 18.6 Glucose 445 H Lactate Calcium 8.9 Total Bilirubin 1.1 AST 31 ALT 37 Alkaline Phosphatase 81 Total Protein 8.5 H Albumin 4.6 Globulin 3.9 Albumin/Globulin Ratio 1.2 Lipase 123 Procalcitonin 0.12 Urine Color Urine Appearance Urine pH Ur Specific [place] Urine Protein Urine Glucose (UA) Urine Ketones Urine Occult Blood Urine Nitrate Urine Bilirubin Urine Urobilinogen Ur Leukocyte Esterase Urine RBC Urine WBC Ur Squamous Epith Cells Urine Bacteria Ur Culture Indicated? 10/23/22 10/23/22 10/23/22 18:30 21:12 23:41 WBC RBC Hgb Hct MCV MCH MCHC RDW Plt Count Neut % (Auto) Lymph % (Auto) Graves % (Auto) Eos % (Auto) Baso % (Auto) Neut # (Auto) Lymph # (Auto) Graves # (Auto) Eos # (Auto) Baso # (Auto) PT INR APTT Sodium Potassium Chloride Carbon Dioxide BUN Creatinine Estimated GFR BUN/Creatinine Ratio Glucose Lactate 2.3 H 1.5 Calcium Total Bilirubin AST ALT Alkaline Phosphatase Total Protein Albumin Globulin Albumin/Globulin Ratio Lipase Procalcitonin Urine Color Yellow Urine Appearance Clear Urine pH 5.5 Ur Specific [place] 1.020 Urine Protein Negative Urine Glucose (UA) 3+ H Urine Ketones Negative Urine Occult Blood Negative Urine Nitrate Negative Urine Bilirubin Negative Urine Urobilinogen 0.2 Ur Leukocyte Esterase Negative Urine RBC None seen Urine WBC None seen Ur Squamous Epith Cells None seen Urine Bacteria None seen Ur Culture Indicated? Cult not indicated 10/24/22 10/24/22 05:18 05:18 WBC 8.7 RBC 4.28 L Hgb 13.4 L Hct 38.0 L MCV 88.8 MCH 31.3 MCHC 35.3 RDW 12.8 Plt Count 240 Neut % (Auto) 48.1 L D Lymph % (Auto) 38.0 Graves % (Auto) 9.8 Eos % (Auto) 3.8 Baso % (Auto) 0.3 Neut # (Auto) 4200 Lymph # (Auto) 3300 Graves # (Auto) 900 Eos # (Auto) 300 Baso # (Auto) 0 PT INR APTT Sodium 134 L Potassium 3.5 Chloride 103 Carbon Dioxide 23 BUN 17 Creatinine 0.72 Estimated GFR > 60 BUN/Creatinine Ratio 23.6 H Glucose 243 H D Lactate Calcium 7.7 L Total Bilirubin 0.6 AST 24 ALT 27 Alkaline Phosphatase 66 Total Protein 6.1 L Albumin 3.2 L Globulin 2.9 Albumin/Globulin Ratio 1.1 Lipase Procalcitonin Urine Color Urine Appearance Urine pH Ur Specific [place] Urine Protein Urine Glucose (UA) Urine Ketones Urine Occult Blood Urine Nitrate Urine Bilirubin Urine Urobilinogen Ur Leukocyte Esterase Urine RBC Urine WBC Ur Squamous Epith Cells Urine Bacteria Ur Culture Indicated? Assessment & Plan Assessment & Plan narrative: #cellulitis of LLE and abdominal skin WBCs wnl but this infection was clearly moving aggressively will plan for at least 24 hours of iv abx then possibly PO if responding #uncontrolled diabetes continue home oral meds with addition of lantus 10U qd and SSI with diabetic diet. Contributing factor for skin infection will need to get this under better control dispo: admit obs, possible d/c on oral meds with lantus plan PCP: [facility] diet: Diabetic dvt: lovenox code: full MDM: [id number] Quality VTE Deep Vein Thrombosis/Pulmonary Embolism Present on Admission: No
--- NOTE | 2022-10-24 14:03 | CM.DANOTE ---
Initial DCP Assessment Visit Pt is a 42 year-old male with cellulitis of LLE and abdominal skin lesion after hitting his stovall at work. Pt admitted for OBS, possible d/c on oral meds with lantus plan. PCP-[facility] Payor: Dov TORRES reviewed EMR and team rounds for medical status and identified needs. Met with pt at bedside, introduced self and role. Explained that Dr. Del Angel, pt will most likely be discharged later this evening. No anticipated needs, pt also declines any home support/resource needs. DCP will continue to monitor. Discharge Planning/Care Management CM Discharge Assessment Start: 10/24/22 13:57 Freq: Status: Active Protocol: Document 10/24/22 13:57 DPL (Rec: 10/24/22 14:03 DPL [id number]) Discharge Planning Assessment Assigned Soda Dialyzer MELISSA Pedersen Advance Directives? No History Provided By Patient Expected Length of Stay 1 Has Patient been admitted in last 30 No days? Prior Living Arrangements House Comment Lives independently in own home with . Household Members spouse,children Type of transporation used prior to Drives own vehicle admit Comment will transport him home. Independent with ADL's Yes Is patient alert and oriented? Yes Needs Assistance With Home Chores / Shopping Caregiver for Another No Comment N/A Comment U/K Comment None Barriers to Discharge No Discharge Plan Home Transportation Arrangement Spouse Referrals Initiated None needed Review Status In Process Please Provide Date Initial DC 10/24/22 Assessment Was Performed
[2022-10-24 14:07] VITALS: BP 118/73; PULSE 66; RESP 16; TEMP 35.7; O2SAT 98
[2022-10-24 16:00] VITALS: BP 125/80; PULSE 56; RESP 16; O2SAT 97
[2022-10-24] MEDS: cefTRIAXone 2,000 MG in SODIUM CHLORIDE 0.9% 100 ML 200 MG IV (16:27)
[2022-10-24] MEDS: INSULIN LISPRO 100 UNIT/ML 3ML VIAL SUBCUT (17:13)
--- NOTE | 2022-10-24 17:17 | P.DS_ITS ---
History of Present Illness History of Present Illness Date Patient Seen: 10/24/22 Time Patient Seen: 17:17 Chief complaint: infection L Leg T-3 Discharge Providers Provider Date of admission: 10/23/22 20:48 Discharge Date: 10/24/22 Primary care physician: Mike Del Angel MD Discharge provider: Mike Del Angel MD Summary Hospital Course Discharge Diagnosis: #cellulitis LLE and abdominal skin #diabetes 2, non insulin dependent, uncontrolled Hospital Course: Pt presented to ED with malaise and infected L stovall wound from injury at work. Bashed it into a scaffolding creating a laceration several days ago which seemed to be healing ok initially however by DoA it was very swollen weeping approximately palm-sized lesion with septic features of presentation. Also noted small ~3mm carbuncle type lesion on left lower abdomen which sprang up about same time. Found at admission to have sugars in the 400s and started on insulin ssi as well as vanc/rocephin, I then added in some long acting insulin as well; has been taking low dose ozemmpic still building up to effective dose. He felt better after 24 hours of IV abx, able to bear weight and ambulate. Swelling in limb is also improving. Appetite is good. Will plan for close follow up in clinic and aggressive control of blood sugars. Status at Discharge Cognitive/behavioral status at discharge: at baseline, oriented Functional status at discharge: independent ambulation Overall status at discharge: patient is progressing back to baseline Exam Vital Signs (past 8 hours): - 10/24/22 14:07 10/24/22 16:00 Temperature 96.3 F L Pulse Rate 66 56 L Respiratory Rate 16 16 Blood Pressure 118/73 125/80 Pulse Oximetry 98 97 Oxygen Delivery Method Room Air Narrative Exam Narrative: laying in bed alert HENMT Other: NC/AT EOMI Resp Other: moving air well clear bilaterally Cardio Other: regular rate and rhythm GI Other: soft nontender Skin Other: LLE lesion reduced below extent of initial marker periphery, L abdominal lesion about the same 4mm but not painful Objective Labs 10/24/22 05:18 10/24/22 05:18 Labs: Laboratory Results - last 24 hr 10/23/22 10/23/22 10/23/22 18:30 18:30 18:30 WBC 11.5 H RBC 4.95 Hgb 15.3 Hct 44.0 MCV 88.7 MCH 30.9 MCHC 34.8 RDW 12.8 Plt Count 301 Neut % (Auto) 69.2 Lymph % (Auto) 20.8 L [place] % (Auto) 8.3 Eos % (Auto) 1.1 L Baso % (Auto) 0.6 Neut # (Auto) 8000 H Lymph # (Auto) 2400 [place] # (Auto) 900 Eos # (Auto) 100 Baso # (Auto) 100 PT 12.3 INR 1.1 APTT 28 Sodium 129 L Potassium 4.6 Chloride 93 L Carbon Dioxide 24 BUN 18 Creatinine 0.97 Estimated GFR > 60 BUN/Creatinine Ratio 18.6 Glucose 445 H Lactate Calcium 8.9 Total Bilirubin 1.1 AST 31 ALT 37 Alkaline Phosphatase 81 Total Protein 8.5 H Albumin 4.6 Globulin 3.9 Albumin/Globulin Ratio 1.2 Lipase 123 Procalcitonin 0.12 Urine Color Urine Appearance Urine pH Ur Specific Perry Urine Protein Urine Glucose (UA) Urine Ketones Urine Occult Blood Urine Nitrate Urine Bilirubin Urine Urobilinogen Ur Leukocyte Esterase Urine RBC Urine WBC Ur Squamous Epith Cells Urine Bacteria Ur Culture Indicated? 10/23/22 10/23/22 10/23/22 18:30 21:12 23:41 WBC RBC Hgb Hct MCV MCH MCHC RDW Plt Count Neut % (Auto) Lymph % (Auto) [place] % (Auto) Eos % (Auto) Baso % (Auto) Neut # (Auto) Lymph # (Auto) [place] # (Auto) Eos # (Auto) Baso # (Auto) PT INR APTT Sodium Potassium Chloride Carbon Dioxide BUN Creatinine Estimated GFR BUN/Creatinine Ratio Glucose Lactate 2.3 H 1.5 Calcium Total Bilirubin AST ALT Alkaline Phosphatase Total Protein Albumin Globulin Albumin/Globulin Ratio Lipase Procalcitonin Urine Color Yellow Urine Appearance Clear Urine pH 5.5 Ur Specific Perry 1.020 Urine Protein Negative Urine Glucose (UA) 3+ H Urine Ketones Negative Urine Occult Blood Negative Urine Nitrate Negative Urine Bilirubin Negative Urine Urobilinogen 0.2 Ur Leukocyte Esterase Negative Urine RBC None seen Urine WBC None seen Ur Squamous Epith Cells None seen Urine Bacteria None seen Ur Culture Indicated? Cult not indicated 10/24/22 10/24/22 05:18 05:18 WBC 8.7 RBC 4.28 L Hgb 13.4 L Hct 38.0 L MCV 88.8 MCH 31.3 MCHC 35.3 RDW 12.8 Plt Count 240 Neut % (Auto) 48.1 L D Lymph % (Auto) 38.0 [place] % (Auto) 9.8 Eos % (Auto) 3.8 Baso % (Auto) 0.3 Neut # (Auto) 4200 Lymph # (Auto) 3300 [place] # (Auto) 900 Eos # (Auto) 300 Baso # (Auto) 0 PT INR APTT Sodium 134 L Potassium 3.5 Chloride 103 Carbon Dioxide 23 BUN 17 Creatinine 0.72 Estimated GFR > 60 BUN/Creatinine Ratio 23.6 H Glucose 243 H D Lactate Calcium 7.7 L Total Bilirubin 0.6 AST 24 ALT 27 Alkaline Phosphatase 66 Total Protein 6.1 L Albumin 3.2 L Globulin 2.9 Albumin/Globulin Ratio 1.1 Lipase Procalcitonin Urine Color Urine Appearance Urine pH Ur Specific Perry Urine Protein Urine Glucose (UA) Urine Ketones Urine Occult Blood Urine Nitrate Urine Bilirubin Urine Urobilinogen Ur Leukocyte Esterase Urine RBC Urine WBC Ur Squamous Epith Cells Urine Bacteria Ur Culture Indicated? COUNTS INCLUDE 234 BEDS AT THE [facility] Medical History Diabetes Social History household members: spouse and children Smoking Status: Never smoker Discharge Assessment & Plan Assessment and Plan Assessment: #cellulitis of LLE and abdominal skin Significant improvement after 24 hours of iv abx will discharge on oral keflex and f/up in clinic tomorrow and give third dose of rocephin if needed pain meds with prn vicodin, keep elevated, ice, mobilize #uncontrolled diabetes continue home oral meds with addition of lantus 10U qd will add this on discharge to get better control advised to keep BG track next few days avoid lows below 100 dispo: d/c home to f/up as outpt with PCP: Bean diet: Diabetic dvt: lovenox code: full MDM: [id number] Discharge Plan Discharge Plan Patient Disposition: Home Discharge orders & Medications Prescriptions: New hydrocodone-acetaminophen 5-325 mg Tablet 1 tab PO Q4HR PRN (Reason: Pain, Moderate (4-6)) Qty: 20 0RF insulin glargine [Lantus Solostar U-100 Insulin] 100 unit/mL (3 mL) insulin pen 10 unit SUBCUT QPM Qty: 15 0RF cephalexin 500 mg capsule 500 mg PO QID 7 Days Qty: 28 0RF Continued Ozempic 0.25 mg or 0.5 mg (2 mg/3 mL) pen injector SUBCUT Patient Comments: [NO ORIGINAL SIG] metformin 1,000 mg tablet 1,000 mg PO DAILY aspirin 81 MG tablet,delayed release (DR/EC) 81 mg PO QDAY Qty: 0 glimepiride [Amaryl] 4 MG tablet 4 - 8 mg PO QPM Qty: 0 hyoscyamine sulfate [Levsin] 0.125 MG tablet 0.125 mg PO Q4HP Qty: 0 docusate sodium 100 MG capsule 200 mg PO BIDP PRNQty: 60 0RF ibuprofen 600 MG tablet 600 mg PO TIDP PRNQty: 20 0RF metoclopramide HCl 10 MG tablet 10 mg PO TIDAC Qty: 30 0RF Follow up/Referrals: Mike Del Angel MD [Primary Care Provider] - Diet/Activity/Treatments Diet: Carb-consistent/Diabetic Visit Report/Discharge Packet Stand Alone Forms: Patient Portal/API, Stroke Signs & Symptoms Discharge Data Primary Care Provider: Mike Del Angel Attending Provider: Barbi Fagan Admit Date/Time: 10/23/22 20:48 Quality VTE Deep Vein Thrombosis/Pulmonary Embolism Present on Admission: No
--- NOTE | 2022-11-29 14:33 | PC.NURSE ---
late entry- Patient was admitted to ACU with vancomycin infusing- was completed at ~2300 per RN.
== END 2022-10-24 17:51 | disposition home or self-care (01) ==
LOC: ED 20:47 → AC 10-24 09:19
PROVIDERS: Emergency Medicine; Admitting Provider Family Medicine; Emergency Provider Emergency Medicine; PCP Family Medicine; Referring Provider Emergency Medicine; Visit Provider Family Medicine
DX: L03.116 Cellulitis of left lower limb (principal); E11.9 Type 2 diabetes mellitus without complications; Z79.84 Long term (current) use of oral hypoglycemic drugs
CPT/HCPCS: 36415; 71045; 73590; 80053; 81001; 82962; 83605; 83690; 84145; 85025; 85610; 85730; 87040; 93005; 93010; 96365; 96366; 96367; 96372; 96375; 99284; G0378; J0696; J1815; J1885

== ENCOUNTER → 2022-12-21 17:50 | Outpatient (CLI) | payer OTHER, SELFPAY | PROVIDERS: PCP Family Medicine; Visit Provider Nurse Practitioner Family | DX: J02.9 Acute pharyngitis, unspecified (principal) | CPT/HCPCS: 87070 ==

== ENCOUNTER → 2023-03-04 16:56 | Outpatient (CLI) | payer OTHER, SELFPAY ==
[2023-03-05 10:48] LABS: Hemoglobin A1C% w Est Avg Glu 6.2 % (4.0-6.0)
== END ==
PROVIDERS: PCP Family Medicine; Referring Provider Family Medicine; Visit Provider Family Medicine
DX: E11.65 Type 2 diabetes mellitus with hyperglycemia (principal)
CPT/HCPCS: 36415; 83036

== ENCOUNTER → 2023-10-10 12:39 | Outpatient (CLI) | payer OTHER, SELFPAY | PROVIDERS: PCP Family Medicine; Referring Provider Family Medicine; Visit Provider Surgery | DX: E11.621 Type 2 diabetes mellitus with foot ulcer (principal); L97.512 Non-pressure chronic ulcer of other part of right foot with fat layer exposed; L84 Corns and callosities | CPT/HCPCS: 11042; 87070; 87075; 87147; 87186; 87205; 99204; 99214 ==

== ENCOUNTER → 2023-10-11 14:34 | Outpatient (CLI) | payer OTHER, SELFPAY ==
--- NOTE | 2023-10-11 14:36 | DI.RAD.S_ITS ---
PROCEDURE: XR FOOT RT MIN 3V INDICATIONS: eval for osteo TECHNIQUE: 3 views of the foot were acquired. COMPARISON: None. FINDINGS: Bones: No fractures or dislocations. No suspicious bony lesions. Soft tissues: No tibiotalar joint effusion. Achilles tendon appears normal. IMPRESSION: The site of current clinical concern for osteomyelitis is not provided. It is very helpful to receive such clinical information, such as if there is a site of soft tissue ulceration. Currently no definite soft tissue ulceration or osteomyelitis can be seen. No gas in the soft tissues is found. Dictated by: Paul Rico M.D. on 10/11/2023 at 16:45 Approved by: Paul Rico M.D. on 10/11/2023 at 16:46
[2023-10-11 16:20] LABS: Add Manual Diff / Slide Review NO; Basophils Absolute Auto 0 /uL (0-100); Basophils Percent Auto 0.3 % (0-2); Eosinophils Absolute Auto 300 /uL (0-450); Hematocrit 43.5 % (41-53); Lymphocytes Absolute Auto 2700 /uL (1100-4500); Lymphocytes Percent Auto 39.5 % (25-40); Mean Corpuscular HGB Conc 34.5 % (30-36); Mean Corpuscular Hemoglobin 31.7 PG (26-34); Monocytes Absolute Auto 400 /uL (0-900); Monocytes Percent Auto 6.6 % (3-14); Neutrophils Absolute Auto 3300 /uL (1500-7000); Neutrophils Percent Auto 49.6 % (50-75); Platelet Count 231 X10^3/uL (150-400); Red Blood Cell Count 4.73 X10^6/uL (4.5-5.9); Red Cell Distribution Width 12.8 % (11.6-14.8); White Blood Cell Count 6.7 X10^3/uL (4.5-11.0)
[2023-10-11 17:02] LABS: Alanine Aminotransferase 33 IU/L (<50); Albumin 4.4 g/dL (3.5-5.0); Albumin Globulin Ratio 1.4 (1.0-2.8); Alkaline Phosphatase 61 U/L (38-126); Aspartate Aminotransferase 39 IU/L (17-59); BUN Creatinine Ratio 18.9 (6-22); Bilirubin Total 0.6 mg/dL (0.2-1.3); Blood Urea Nitrogen 17 mg/dL (9-20); C-Reactive Protein Quant < 0.5 mg/dL (<1.0); Calcium 8.9 mg/dL (8.4-10.2); Carbon Dioxide 24 mmol/L (22-32); Chloride 105 mmol/L (98-107); Estimated Glomerular Filt Rate > 60 mL/min (>60); Globulin 3.2 g/dL (1.7-4.1); Glucose 138 mg/dL (70-100); HEMOLYSIS 17 (0-50); Potassium 3.7 mmol/L (3.4-5.1); Sodium 139 mmol/L (137-145); Total Protein 7.6 g/dL (6.3-8.2)
[2023-10-11 19:39] LABS: Hemoglobin A1C% w Est Avg Glu 5.8 % (4.0-6.0)
[2023-10-11 21:24] LABS: Erythrocyte Sedimentation Rate 7 MM/HR (0-15)
== END ==
LOC: LAB 14:35
PROVIDERS: PCP Family Medicine; Referring Provider Surgery; Visit Provider Surgery
DX: E11.621 Type 2 diabetes mellitus with foot ulcer (principal)
CPT/HCPCS: 73630; 80053; 83036; 85025; 85651; 86140

== ENCOUNTER → 2023-10-17 14:59 | Outpatient (CLI) | payer OTHER, SELFPAY | PROVIDERS: PCP Family Medicine; Referring Provider Family Medicine; Visit Provider Surgery | DX: E11.621 Type 2 diabetes mellitus with foot ulcer (principal); L97.512 Non-pressure chronic ulcer of other part of right foot with fat layer exposed; L84 Corns and callosities | CPT/HCPCS: 11042 ==

== ENCOUNTER → 2023-10-24 14:48 | Outpatient (CLI) | payer OTHER, SELFPAY | LOC: WC 14:49 | PROVIDERS: PCP Family Medicine; Referring Provider Family Medicine; Visit Provider Surgery | DX: E11.621 Type 2 diabetes mellitus with foot ulcer (principal); L97.512 Non-pressure chronic ulcer of other part of right foot with fat layer exposed; L84 Corns and callosities | CPT/HCPCS: 11042 ==

== ENCOUNTER → 2023-10-31 15:12 | Outpatient (CLI) | payer OTHER, SELFPAY | LOC: WC 15:13 | PROVIDERS: PCP Family Medicine; Referring Provider Family Medicine; Visit Provider Surgery | DX: E11.628 Type 2 diabetes mellitus with other skin complications (principal); L84 Corns and callosities | CPT/HCPCS: 99212; 99213 ==

== ENCOUNTER → 2023-11-07 14:34 | Outpatient (CLI) | payer OTHER, SELFPAY | PROVIDERS: PCP Family Medicine; Referring Provider Family Medicine; Visit Provider Surgery | DX: Z09 Encounter for follow-up examination after completed treatment for conditions other than malignant neoplasm (principal); Z86.31 Personal history of diabetic foot ulcer | CPT/HCPCS: 99211; 99213 ==

== ENCOUNTER → 2023-12-30 14:50 | Outpatient (CLI) | payer OTHER, SELFPAY ==
--- NOTE | 2023-12-30 14:53 | DI.RAD.S_ITS ---
PROCEDURE: XR SHOULDER LT MIN 2V INDICATIONS: ROTATOR CUT OFF LT SHOULDER TECHNIQUE: 3 views of the shoulder were acquired. COMPARISON: None. FINDINGS: Bones: No fractures or dislocations. No suspicious bony lesions. Visualized ribs appear intact. Mild acromioclavicular narrowing. Soft tissues: No suspicious soft tissue calcifications. IMPRESSION: Mild acromioclavicular narrowing. Dictated by: Bridgette Blackmon M.D. on 12/31/2023 at 9:43 Approved by: Bridgette Blackmon M.D. on 12/31/2023 at 9:46
== END ==
PROVIDERS: PCP Family Medicine; Referring Provider Family Medicine; Visit Provider Family Medicine
DX: S46.002A Unspecified injury of muscle(s) and tendon(s) of the rotator cuff of left shoulder, initial encounter (principal); X58.XXXA Exposure to other specified factors, initial encounter
CPT/HCPCS: 73030

== ENCOUNTER → 2024-01-21 19:42 | Outpatient (CLI) | payer OTHER, SELFPAY ==
--- NOTE | 2024-01-21 19:44 | DI.MRI.S_ITS ---
PROCEDURE: MR SHOULDER LT WO CON INDICATIONS: AC JOINT DERANGEMENT TECHNIQUE: Noncontrast oblique coronal T2 fast spin echo with fat saturation, oblique sagittal T1 spin echo and T2 fast spin echo with fat saturation, axial T1 spin echo and T2 fast spin echo with fat saturation through the shoulder. COMPARISON: [facility], MR, MR SHOULDER RT WO CON, 03/20/2018, 8:04. FINDINGS: Image quality: Excellent. Rotator cuff: In the supraspinatus, there is high-grade, near full-thickness tear at the anterior and mid footprint, extending to a low-grade interstitial tear in the posterior footprint. Focal low-grade interstitial tear at the anterior footprint of the infraspinatus. The teres minor is unremarkable. Low-grade articular sided tear of the superior fiber of the subscapularis. No muscle edema or fatty atrophy. Bones and bursae: Mild degenerative changes of the acromioclavicular joint. Type 1 acromion. No os acromiale. Mild subacromial/subdeltoid bursitis. Moderate marrow edema in the anterior aspect of the greater tuberosity, reactive. No acute fracture. No focal chondral defect of the glenohumeral articulation. Capsule and soft tissues: Anterior superior labral tear. No paralabral cyst. The extra-articular and the intra-articular biceps tendon are unremarkable. Small glenohumeral effusion. No intra-articular body. IMPRESSION: 1. High-grade, near full-thickness tear at the anterior and mid footprint of the supraspinatus, extending to a low-grade tear at the posterior footprint. Moderate subjacent reactive marrow edema in the anterior greater tuberosity. 2. Low-grade tear of the infraspinatus and subscapularis. 3. Labral tear. Dictated by: Viridiana Vasquez M.D. on 01/22/2024 at 10:58 Approved by: Viridiana Vasquez M.D. on 01/22/2024 at 11:06
== END ==
PROVIDERS: PCP Family Medicine; Referring Provider Family Medicine; Visit Provider Family Medicine
DX: S46.012A Strain of muscle(s) and tendon(s) of the rotator cuff of left shoulder, initial encounter (principal); S43.492A Other sprain of left shoulder joint, initial encounter; M24.9 Joint derangement, unspecified; X58.XXXA Exposure to other specified factors, initial encounter
CPT/HCPCS: 73221

== ENCOUNTER → 2024-05-07 14:10 | Outpatient (CLI) | payer OTHER, SELFPAY ==
--- NOTE | 2024-05-07 | OV.WND_ITS ---
PROGRESS NOTE DETAILS PATIENT NAME: GRECIA JOSHI PATIENT NUMBER: [id number] CLINICIAN: MELISSA GLEASON RN PATIENT DATE OF : 1980 PHYSICIAN / BRAILLE DUPLICATING MACHINE OPERATOR: GURDEEP MARSHALL PATIENT SUBJECTIVE CHIEF COMPLAINT THIS INFORMATION WAS OBTAINED FROM THE PATIENT. I NOTICED IT (THE WOUND) 2 AND A HALF WEEKS AGO. GENERAL NOTES POSSIBLE RIGHT HALLUX DIABETIC ULCER ALLERGIES MORPHINE HPI THIS INFORMATION WAS OBTAINED FROM THE PATIENT. THE FOLLOWING HPI ELEMENTS WERE DOCUMENTED FOR THE PATIENT'S WOUND: LOCATION: R GREAT TOE DURATION: 04/20/24 CONTEXT: DFU THE PATIENT IS A 43-YEAR-OLD MALE WHO WAS RETURNS TODAY FOR READMISSION TO THE WOUND CENTER FOR EVALUATION OF POSSIBLE RECURRENT DIABETIC ULCER RIGHT GREAT TOE. THE PATIENT NOTED SOME DISCOLORATION OF THE RIGHT GREAT TOE THAT HAS BEEN GRADUALLY WORSENING. HE DENIES HAVING ANY PAIN OR DISCOMFORT NOR HAS HE NOTED ANY REDNESS OR DRAINAGE. THE PATIENT HAS BEEN USING DIABETIC FOOTWEAR WITH CUSTOM INSERTS. HE REPORTS A GOOD APPETITE AND DENIES HAVING ANY OTHER RECENT CHANGES IN HIS OVERALL HEALTH. HE HAS HAD GOOD CONTROL OF HIS BLOOD SUGARS. /HEMOGLOBIN A1C WAS 5.8 IN SEPTEMBER 2023. ABIS DONE IN CLINIC TODAY WERE 1.22 ON THE LEFT AND 1.29 ON THE RIGHT. HOSPITAL RECORDS WERE REVIEWED AND THERE ARE NO RECENT LABS, CULTURES, OR IMAGING STUDIES AVAILABLE. FAMILY HISTORY THIS INFORMATION WAS OBTAINED FROM THE PATIENT. DIABETES- MOTHER, MATERNAL GRANDPARENTS SOCIAL HISTORY THIS INFORMATION WAS OBTAINED FROM THE CHART, PATIENT. NEVER SMOKER OCCUPATION: SENIOR CONTRACT SPECIALIST, PRE PRESS OPERATOR MEDICAL HISTORY THIS INFORMATION WAS OBTAINED FROM THE PATIENT. GRECIA JOSHI [id number] 1980 PATIENT HAS A MEDICAL HISTORY OF: TYPE II DIABETES SURGICAL HISTORY THIS INFORMATION WAS OBTAINED FROM THE PATIENT. PATIENT HAS A SURGICAL HISTORY OF: R ROTATOR CUFF REPAIR- APPENDECTOMY- R WRIST REPAIR- REVIEW OF SYSTEMS (ROS) THIS INFORMATION WAS OBTAINED FROM THE PATIENT. COMPLAINTS AND SYMPTOMS PATIENT COM PLAINS OF: CO-MORBID CONDITIONS: DIABETES, NEUROPATHY PRIOR WOUND HISTORY: PAIN PATIENT DENIES COM PLAINTS OR SY M PTOM S RELATED TO: CARDIOVASCULAR (CENTRAL): CHEST PAIN, DYSPNEA ON EXERTION CONSTITUTIONAL SYMPTOMS (GENERAL HEALTH): CHILLS, FEVER NEUROLOGICAL: ABNORMAL GAIT PRIOR WOUND HISTORY: BLEEDING, DRAINAGE, ERYTHEMA, MALODOR RESPIRATORY: COUGH, SHORTNESS OF BREATH OBJECTIVE VITALS HEIGHT/LENGTH: 73 IN (185.42 CM), WEIGHT: 223.8 LBS (101.73 KGS), BMI: 29.5, TEMPERATURE: 98.8 ?F (37.11 ?C), PULSE: 67 BPM, RESPIRATORY RATE: 16 BREATHS/MIN, BLOOD PRESSURE: 153/95 MMHG, PULSE OXIMETRY: 97 %. GENERAL NOTES CBG PER PT YESTERDAY WAS 126 PHYSICAL EXAM CONSTITUTIONAL: VITAL SIGNS REVIEWED AND NOTED. WELL DEVELOPED, WELL NOURISHED, AND IN NO ACUTE DISTRESS. ALERT AND ORIENTED X3. RESPIRATORY: EVEN RESPIRATIONS WITHOUT USE OF ACCESSORY MUSCLES. NO INTERCOASTAL RETRACTIONS NOTED. EVEN AND NON LABORED RESPIRATION. INTEGUMENTARY (HAIR, SKIN): CALLUS MEDIAL RIGHT GREAT TOE WITH SOME DARK STAINING. NO SWELLING OR TENDERNESS. SEE WOUND ASSESSMENT. SKIN WARM AND DRY. NO RASHES. NEUROLOGICAL: DECREASED LOWER EXTREMITY SENSATION. PSYCHIATRIC: ORIENTATION TO TIME, PLACE AND PERSON: NORMAL AFFECT WITH NORMAL THOUGHT PATTERN. LOWER EXTREMITY ASSESSMENT EDEMA ASSESSMENT: GRECIA JOSHI [id number] 1980 LEFT EXTREMITY: CALF MEASUREMENT 38 CM FROM HEEL WITH LEFT MEASUREMENT OF 39 CM ANKLE MEASUREMENT 5 CM FROM HEEL BONE WITH LEFT MEASUREMENT OF 22 CM FOOT MEASUREMENT 14 CM FROM HEEL WITH LEFT MEASUREMENT OF 23 CM RIGHT EXTREMITY: CALF MEASUREMENT 38 CM FROM HEEL WITH RIGHT MEASUREMENT OF 38 CM ANKLE MEASUREMENT 5 CM FROM HEEL BONE WITH RIGHT MEASUREMENT OF 22 CM FOOT MEASUREMENT 14 CM FROM HEEL WITH RIGHT MEASUREMENT OF 23.5 CM OFF-LOADING: LEFT OFF-LOADING DEVICE IN USE: YES RIGHT OFF-LOADING DEVICE IN USE: YES GENERAL NOTES AND DIABETIC SHOES ASSESSMENT ACTIVE PROBLEMS ICD-10 (ENCOUNTER DIAGNOSIS) L84 - CORNS AND CALLOSITIES (ENCOUNTER DIAGNOSIS) E11.628 - TYPE 2 DIABETES MELLITUS WITH OTHER SKIN COMPLICATIONS GENERAL NOTES CALLUS MEDIAL RIGHT GREAT TOE, NO OPEN ULCER IDENTIFIED, NO SIGN OF INFECTION. RECOMMEND KERASOL AND PUMICE STONE TO KEEP CALLUS UNDER CONTROL. CONSIDER HAVING INSERTS RE-EVALUATED. FOLLOW UP AT WOUND CENTER IF THE AREA WORSENS OR IF AN ULCER DEVELOPS. PLAN ADDITIONAL ORDERS: HAND HYGIENE HAND HYGIENE - WASH HANDS BEFORE AND AFTER WOUND CARE. CALL THE WOUND CENTER AT [phone] IF YOU HAVE SIGNS OR SYMPTOMS OF INFECTION, FEVER CHILLS OR SHAKES, INCREASED DRAINAGE, INCREASED ODOR OR UNUSUAL REDNESS. AFTER WOUND CENTER HOURS PLEASE NOTIFY YOUR PCP OR GO TO THE EMERGENCY ROOM. CLEANSER CLEANSE WOUND WITH NORMAL SALINE DIETARY TAKE VITAMIN C 1000MG BY MOUTH DAILY. TAKE ZINC 25MG BY MOUTH DAILY. INCREASE THE PROTEIN IN YOUR DIET. FOLLOW-UP APPOINTMENTS OTHER ORDERS: - KEEP FILING THE WOUND AREA. USE KERASOL. KEEP USING YOUR INSOLE AND DIABETIC SHOES. AND GIVE US A CALL IF YOU FEEL LIKE THE WOUND HAS OPENED BACK UP. PROVIDER REVIEW AND ATTESTATION: REVIEWED HOSPITAL RECORDS. DISCUSSED THE PLAN OF CARE @ BEDSIDE WITH - THE PATIENT I AGREE AND ATTEST TO THE ABOVE INFORMATION PROVIDED FROM OTHER LICENSED PROFESSIONALS. PLAN OF CARE: 01. ENSURE/ESTABLISH OPTIMAL BLOOD FLOW : - COMPLETE LOWER EXTREMITY ASSESSMENT STATUS: COMPLETED DATE: 05/07/2024 - PERFORM NON-INVASIVE VASCULAR TESTING (I.E. ROSALVA) AND DOCUMENT FINDINGS. CONSIDER REPEATING WHEN WOUND HEALING <40% AFTER 30 DAYS OF WOUND CARE. STATUS: COMPLETED DATE: 05/07/2024 GRECIA JOSHI [id number] 1980 02. ASSESS FOR/TREAT INFECTION : - EVALUATE FOR SIGNS AND SYMPTOMS OF INFECTION AND DOCUMENT FINDINGS. STATUS: COMPLETED DATE: 05/07/2024 03. DEBRIDE WEEKLY OR MORE OFTEN PRN : - EVALUATE PATIENT IN CENTER WEEKLY TO ASSESS WOUND BED AND MARGINS FOR NEED FOR DEBRIDEMENT. STATUS: COMPLETED DATE: 05/07/2024 04. OPTIMIZE GLUCOSE CONTROL AND NUTRITION : - COMPLETE A NUTRITION RISK ASSESSMENT. STATUS: COMPLETED DATE: 05/07/2024 05. OFFLOADING PLAN : - EVALUATE PLAN FOR OFFLOADING STATUS: COMPLETED DATE: 05/07/2024 - ADVISE PATIENT TO OFFLOAD THE FOOT ULCER. (I.E. HALF SHOE, SURGICAL SHOE, INSERT, CUSTOM SHOE, FELT AND FOAM, CAM WALKER, MULTIPODUS SPLINT, TOTAL CONTACT CAST, BI-VALVE CAST, POSTERIOR SPLINT). STATUS: COMPLETED DATE: 05/07/2024 - PROVIDE EDUCATION MATERIALS/DISCUSS OFFLOADING STRATEGIES APPROPRIATE. STATUS: COMPLETED DATE: 05/07/2024 06. OPTIMIZE HOST FACTORS: - REVIEWED, NOT APPLICABLE 07. DRESSING SELECTION : - REVIEWED, NOT APPLICABLE 08. ADVANCED MODALITIES : - REVIEWED, NOT APPLICABLE 09. FALL PREVENTION : - COMPLETE FALL ASSESSMENT. STATUS: COMPLETED DATE: 05/07/2024 10. PAIN MANAGEMENT : - COMPLETE PAIN ASSESSMENT STATUS: COMPLETED DATE: 05/07/2024 11. MEASURABLE GOALS FOR WOUND HEALING AND/OR HYPERBARIC OXYGEN THERAPY : - REVIEWED, NOT APPLICABLE 12. DURATION/FREQUENCY OF WOUND CARE VISITS : - REVIEWED, NOT APPLICABLE ELECTRONIC SIGNATURE(S) SIGNED BY: DATE: GURDEEP MARSHALL MD 05/07/2024 16:18:43 (PT) ENTERED BY: GURDEEP MARSHALL MD ON 05/07/2024 16:12:22 (PT) GRECIA JOSHI [id number] 1980
== END ==
PROVIDERS: PCP Family Medicine; Referring Provider Family Medicine; Visit Provider Surgery
DX: L84 Corns and callosities (principal); E11.628 Type 2 diabetes mellitus with other skin complications
CPT/HCPCS: 99213